=== PATIENT | male | born 1985 | race Caucasian/White ===

== ENCOUNTER 2021-05-03 01:58 | Emergency (ER) | payer SELFPAY ==
[2021-05-03 03:10] LABS: ALBUMIN 4.3 g/dL (3.4-5.0); BILIRUBIN - TOTAL 0.3 mg/dL (0.2-1.0); BUN/CREAT RATIO (CALC) 11.5 RATIO; CREATININE 0.87 mg/dL (0.67-1.17); GLOBULIN (CALCULATION) 2.9 g/dL; POTASSIUM 3.8 mmol/L (3.5-5.1); TOTAL PROTEIN 7.2 g/dL (6.4-8.2)
[2021-05-03 03:21] LABS: BASOPHIL 1.2 % (0-2); EOSINOPHIL 4.4 % (0-5); HCT 45.8 % (42.0-52.0); HGB 15.5 g/dl (13.2-18.0); LYMPHOCYTE 35.8 % (15-48); MCH 30.3 pg (25.0-31.0); MCHC 33.8 g/dL (32.0-36.0); MCV 89.6 fL (78.0-100.0); MONOCYTE 6.7 % (0-12); MPV 11.7 fL (6.0-9.5); NEUTROPHIL 51.8 % (41-80); NRBC 0; PLT 195 K/uL (150-400); RBC 5.11 M/uL (4.70-6.00); RDW 11.9 % (11.5-14.0); WBC 8.6 K/uL (4.0-10.5)
== END 2021-05-03 07:20 | disposition home or self-care (01) ==
LOC: FER 01:58
PROVIDERS: Emergency Medicine
DX: F10.129 Alcohol abuse with intoxication, unspecified (principal); Y90.8 Blood alcohol level of 240 mg/100 ml or more
CPT/HCPCS: 36415; 80053; 85025; 99284; G0480